=== PATIENT | female | born 1975 | race Caucasian/White ===

== ENCOUNTER 2025-01-30 11:41 | Inpatient (IN) | payer MEDICAID, OTHER ==
[~2025-01-30] VITALS: Ht 149.9 cm; Wt 71.8 kg
[2025-01-30 13:26] LABS: RED BLOOD CELL COUNT(AUTO) 4.32 MIL/uL (4.00-5.20); WHITE BLOOD COUNT (AUTO) 6.5 K/uL (4.5-11.0)
[2025-01-30 13:27] LABS: PLATELET COUNT (AUTO) 354 K/uL (150-450); RED CELL DISTRIBUTION WIDTH 13.2 % (11.5-14.5)
[2025-01-30] MEDS ORDERED: MAGNESIUM HYDROXIDE SUSPENSION 30 ML UDCUP PO PRN (13:30)
[2025-01-30 13:32] LABS: CALCIUM, TOTAL 8.9 mg/dL (8.8-10.5); CREATININE 0.68 mg/dL (0.60-1.30); GLOMERULAR FILTR. RATE CALC > 60 mL/min (>60); GLUCOSE,RANDOM 113 mg/dL (70-110); SODIUM SERUM 137 mmol/L (136-145); UREA NITROGEN, BLOOD 8 mg/dL (7-18)
[2025-01-30 13:39] LABS: ASPARTATE AMINOTRANSFERASE 18.0 U/L (15-37); CREATINE KINASE, TOTAL ONLY 205.0 U/L (26-192); TOTAL PROTEIN, SERUM 7.1 g/dL (6.4-8.2)
[2025-01-30 13:40] LABS: TROPONIN I-HIGH SENSITIVITY 5 ng/L (<51)
[2025-01-30 13:59] LABS: HCG,QUANTITATIVE 2.0 mIU/mL (0-6)
[2025-01-30] MEDS: ONDANSETRON HCL 4 MG/2 ML VIAL IVP PRN (14:31)
[2025-01-30] MEDS: SODIUM CHLORIDE 0.9% 1,000 ML IV ONE ×2 (14:34→15:55)
[2025-01-30] MEDS: HEPARIN SODIUM,PORCINE 5,000 UNITS/ML VIAL SQ SCH (16:00)
[2025-01-30] MEDS: ZOLPIDEM TARTRATE 5 MG TABLET PO PRN (20:30)
[2025-01-30] MEDS: LORazepam 2 MG/ML VIAL IVP PRN (20:30)
[2025-01-30] MEDS: ACETAMINOPHEN 325 MG TABLET PO PRN (20:30)
[2025-01-30 22:19] LABS: APPEARANCE,URINE CLEAR (CLEAR); GLUCOSE, URINE (UA) NEGATIVE (NEGATIVE); LEUKOCYTE ESTERASE ,URINE MODERATE (NEGATIVE); NITRATE,URINE NEGATIVE (NEGATIVE); OCCULT BLOOD,URINE NEGATIVE (NEGATIVE); PH,URINE DRUG SCREEN 6.5 (5.0-8.0); SPECIFIC GRAVITIY, URINE 1.013 (1.003-1.030)
[2025-01-30 22:21] VITALS: BP 100/81; PULSE 58; RESP 20; TEMP 97.7; O2SAT 100
[2025-01-30 22:24] LABS: AMPHET/METH SCREEN,URINE POSITIVE (NEGATIVE); BARBITURATE SCREEN, URINE NEGATIVE (NEGATIVE); CANNABINOID SCREEN,URINE NEGATIVE (NEGATIVE); COCAINE SCREEN,URINE NEGATIVE (NEGATIVE); METHADONE SCREEN, URINE NEGATIVE (NEGATIVE)
[2025-01-30 22:31] LABS: ALCOHOL, URINE DRUG SCREEN NEGATIVE (NEGATIVE)
[2025-01-30 22:47] LABS: SQUAMOUS EPITHELIAL CELL,UR Rare /LPF (None Seen)
[2025-01-30] MEDS: FAMOTIDINE 20 MG TABLET PO SCH (23:27)
[2025-01-31 04:36] VITALS: BP 99/60; PULSE 80; RESP 18; TEMP 97.9; O2SAT 94
[2025-01-31] MEDS ORDERED: MAG HYDROX/ALUMINUM HYD/SIMETH ES 30 ML SUSPENSION UDCUP PO PRN (05:15)
[2025-01-31] MEDS: SODIUM CHLORIDE 0.45% 1,000 ML IV SCH (05:38)
[2025-01-31 06:54] VITALS: TEMP 97.9
[2025-01-31 08:00] VITALS: BP 116/80; PULSE 74; RESP 18; TEMP 98.6; O2SAT 74
[2025-01-31] MEDS: IBUPROFEN 600 MG TABLET PO PRN (09:25)
[2025-01-31] MEDS: BACLOFEN 10 MG TABLET PO PRN (11:37)
[2025-01-31] MEDS: ACETAMINOPHEN 325 MG TABLET PO PRN (15:49)
[2025-01-31 19:52] VITALS: BP 148/80; PULSE 66; RESP 18; TEMP 98.4; O2SAT 100
[2025-02-01] MEDS: DICYCLOMINE HCL 10 MG CAPSULE PO PRN (03:37)
[2025-02-01 04:52] VITALS: BP 131/84; PULSE 60; RESP 18; TEMP 98.1; O2SAT 97
[2025-02-01 09:58] VITALS: BP 141/86; PULSE 50; RESP 19; TEMP 98.4; O2SAT 98
[2025-02-01 19:59] VITALS: BP 111/85; PULSE 62; RESP 18; TEMP 98; O2SAT 95
[2025-02-01 21:59] LABS: PLATELET COUNT (AUTO) 337 K/uL (150-450); RED BLOOD CELL COUNT(AUTO) 4.14 MIL/uL (4.00-5.20); RED CELL DISTRIBUTION WIDTH 12.7 % (11.5-14.5); WHITE BLOOD COUNT (AUTO) 8.0 K/uL (4.5-11.0)
[2025-02-02 04:27] VITALS: BP 145/89; PULSE 80; RESP 19; TEMP 99.1; O2SAT 97
[2025-02-02 06:32] LABS: PLATELET COUNT (AUTO) 340 K/uL (150-450); RED BLOOD CELL COUNT(AUTO) 4.12 MIL/uL (4.00-5.20); RED CELL DISTRIBUTION WIDTH 13.0 % (11.5-14.5); WHITE BLOOD COUNT (AUTO) 7.5 K/uL (4.5-11.0)
[2025-02-02 06:55] LABS: ASPARTATE AMINOTRANSFERASE 17 U/L (15-37); CALCIUM, TOTAL 8.6 mg/dL (8.8-10.5); CREATININE 0.63 mg/dL (0.60-1.30); GLOMERULAR FILTR. RATE CALC > 60 mL/min (>60); GLUCOSE,RANDOM 110 mg/dL (70-110); SODIUM SERUM 134 mmol/L (136-145); TOTAL PROTEIN, SERUM 6.9 g/dL (6.4-8.2); UREA NITROGEN, BLOOD 8 mg/dL (7-18)
[2025-02-02 08:16] VITALS: BP 126/69; PULSE 55; RESP 18; TEMP 99; O2SAT 99
[2025-02-02] MEDS ORDERED: SODIUM CHLORIDE 0.9% 0 ML ONE (08:52)
[2025-02-02] MEDS ORDERED: 0.9% SODIUM CHLORIDE 10 ML SYRINGE IVP ONE ×2 (08:52→10:46)
[2025-02-02] MEDS ORDERED: IOHEXOL 350 MG/ML 100 ML VIAL ONE ×2 (08:52→10:46)
[2025-02-02] MEDS ORDERED: SODIUM CHLORIDE 0.9% 100 ML ONE (10:47)
[2025-02-02] MEDS ORDERED: POTASSIUM CHL 10 MEQ/WATER 50 ML IV PRN (11:00)
[2025-02-02] MEDS: POTASSIUM CHLORIDE 20 MEQ ER TABLET PO PRN (11:36)
[2025-02-02 20:00] VITALS: BP 140/64; PULSE 60; RESP 20; TEMP 98.2; O2SAT 97
[2025-02-03 04:00] VITALS: BP 142/77; PULSE 58; RESP 18; TEMP 97.8; O2SAT 97
[2025-02-03 07:28] LABS: ASPARTATE AMINOTRANSFERASE 28 U/L (15-37); CALCIUM, TOTAL 8.7 mg/dL (8.8-10.5); CREATININE 0.65 mg/dL (0.60-1.30); GLOMERULAR FILTR. RATE CALC > 60 mL/min (>60); GLUCOSE,RANDOM 105 mg/dL (70-110); SODIUM SERUM 135 mmol/L (136-145); TOTAL PROTEIN, SERUM 7.2 g/dL (6.4-8.2); UREA NITROGEN, BLOOD 10 mg/dL (7-18)
[2025-02-03 08:50] VITALS: BP 139/87; PULSE 62; RESP 18; TEMP 99.3; O2SAT 97
[2025-02-03] MEDS: LOPERAMIDE HCL 2 MG CAPSULE PO ONE (17:13)
[2025-02-03 19:46] VITALS: BP 144/83; PULSE 68; RESP 18; TEMP 98.5; O2SAT 100
[2025-02-04 05:14] VITALS: BP 127/70; PULSE 63; RESP 18; TEMP 98.1; O2SAT 100
[2025-02-04 08:05] LABS: ASPARTATE AMINOTRANSFERASE 21 U/L (15-37); CALCIUM, TOTAL 9.0 mg/dL (8.8-10.5); CREATININE 0.76 mg/dL (0.60-1.30); GLOMERULAR FILTR. RATE CALC > 60 mL/min (>60); GLUCOSE,RANDOM 114 mg/dL (70-110); SODIUM SERUM 137 mmol/L (136-145); TOTAL PROTEIN, SERUM 7.4 g/dL (6.4-8.2); UREA NITROGEN, BLOOD 8 mg/dL (7-18)
[2025-02-04 08:19] VITALS: BP 145/95; PULSE 55; RESP 18; TEMP 98.8; O2SAT 95
[2025-02-04] MEDS: LOPERAMIDE HCL 2 MG CAPSULE PO PRN (09:39)
[2025-02-04] MEDS: PROMETHAZINE HCL 25 MG TABLET PO PRN (13:26)
[2025-02-04 17:17] VITALS: BP 145/95; PULSE 55; RESP 18; TEMP 98.8; O2SAT 95
[2025-02-04 20:00] VITALS: BP 143/86; PULSE 56; RESP 18; TEMP 98.1; O2SAT 100
[2025-02-05 04:00] VITALS: BP 128/79; PULSE 52; RESP 18; TEMP 98; O2SAT 99
[2025-02-05 08:05] LABS: ASPARTATE AMINOTRANSFERASE 14 U/L (15-37); CALCIUM, TOTAL 9.0 mg/dL (8.8-10.5); CREATININE 0.81 mg/dL (0.60-1.30); GLOMERULAR FILTR. RATE CALC > 60 mL/min (>60); GLUCOSE,RANDOM 103 mg/dL (70-110); SODIUM SERUM 136 mmol/L (136-145); TOTAL PROTEIN, SERUM 7.0 g/dL (6.4-8.2); UREA NITROGEN, BLOOD 9 mg/dL (7-18)
[2025-02-05 08:19] VITALS: BP 135/82; PULSE 56; RESP 18; TEMP 97.9; O2SAT 98
[2025-02-05] MEDS ORDERED: HEPA50009 SQ (13:42)
[2025-02-05] MEDS ORDERED: FAMO20 PO (13:42)
[2025-02-05] MEDS ORDERED: ACET-2247 PO (13:43)
[2025-02-05] MEDS ORDERED: BACL10TA PO (13:45)
[2025-02-05] MEDS ORDERED: CLON0.1T2 PO (13:46)
[2025-02-05] MEDS ORDERED: DICY-1 PO (13:46)
[2025-02-05] MEDS ORDERED: HYDR50CA7 PO (13:48)
[2025-02-05 20:38] VITALS: BP 100/68; PULSE 77; RESP 17; TEMP 98.6; O2SAT 96
[2025-02-06 04:40] VITALS: BP 134/79; PULSE 66; RESP 18; TEMP 98.1; O2SAT 98
== END 2025-02-06 06:46 | DRG 897 ==
LOC: EMS 11:41 → EDH 13:16 → 6S 18:37
PROVIDERS: ADMIT Internal Medicine; ATTEND Internal Medicine
DX: F11.13 Opioid abuse with withdrawal (principal); E66.9 Obesity, unspecified; F15.10 Other stimulant abuse, uncomplicated; F17.210 Nicotine dependence, cigarettes, uncomplicated; F19.10 Other psychoactive substance abuse, uncomplicated; Z68.32 Body mass index [BMI] 32.0-32.9, adult
CPT/HCPCS: 71045; 74177; 80048; 80053; 80076; 80307; 81001; 82150; 82550; 83690; 83735; 83880; 84132; 84484; 84702; 85025; 85610; 85730; 87389; 93005; 99285; J1644; J2060; J2405; J7050; 36415-L1; 36415-TC